=== PATIENT | female | born 1990 | race Caucasian/White ===

== ENCOUNTER 2017-06-20 03:30 | Inpatient (IN) | payer OTHER ==
[~2017-06-20] VITALS: Ht 160 cm; Wt 72.2 kg
[~2017-06-20 03:30] MED LIST: CALCIUM; PREN1TAB13 PO
[2017-06-20 03:34] VITALS: Ht 160 cm; Wt 72.2 kg
[2017-06-20] MEDS ORDERED: FERR134T PO (03:37)
[2017-06-20 05:41] LABS: URINE BLOOD (Dip) POC Negative (NEGATIVE)
[2017-06-20 05:42] VITALS: BP 101/57; PULSE 61; RESP 18
--- NOTE | 2017-06-20 06:32 | PN ---
Triage Information Date/Time Reason for visit: Uterine contractions Weeks of Gestation 34 weeks and 4 days of gestation /Para 3 para 2 Diabetes: none Hypertention: none Objective Vital Signs Date Time Temp Pulse Resp B/P Pulse Ox O2 Delivery O2 Flow Rate FiO2 06/20/17 05:42 97.6 61 18 101/57 Room Air Heart Rate: 140's Heart Rate Comments Reactive Contractions: None Results/Medications Results 24 hrs Laboratory Tests Test 06/20/17 05:51 Bedside Urine pH (LAB) 7.0 Bedside Urine Protein (LAB) Negative Bedside Urine Glucose (UA) Negative Bedside Urine Ketones (LAB) Negative Bedside Urine Blood Negative Bedside Urine Nitrite (LAB) Negative Bedside Urine Leukocyte Esterase (L Negative Disposition: Admit Assessment/Plan Biophysical profile of 6 out of 8 with low HUNTER 4.2 EFW and Gestation age ultrasound to be done We will admit patient to antepartum IV fluids and labs Repeat BPP in 24 hours Perinatology consult JULIAN ROBBINS MD Jun 20, 2017 06:32
--- NOTE | 2017-06-20 07:00 | HP ---
Date/Time of Note Date/Time of Note DATE: 06/20/17 TIME: 06:57 OB - History Hx of Present Free Text/Dictation 3 para 2 at 34 weeks and 4 days of gestation with oligohydramnios Chief Complaint: Contractions : 3 Para: 2 Care: Good Care Abnormal Ultrasound Findings: PROCEDURE: ULTRASOUND OBSTETRICAL CLINICAL INDICATION: 26-year-old female in labor for size and date determination. TECHNIQUE: Multiple sonographic images of the pelvis were obtained. The images were reviewed on a PACS workstation. COMPARISON: Ultrasound biophysical profile obtained concurrently. FINDINGS: There is a single viable intrauterine gestation. Cardiac activity is present with 146 beats per minute. There is a vertex presentation. Measurements were made in order to determine age. The results are as follows: BPD = 8.58 cm, HC = 31.00 cm, AC = 30.68 cm, FL = 6.69 cm. This yields and estimated gestational age of approximately 34 weeks 4 days. The estimated date of delivery is July 28, 2017. The EFW = 2461 +/- 369 g (5 lb 7 oz). The GP is 45%. The placenta is posterior. There is no evidence for an abruption or placenta previa. The amniotic fluid index equals 4.4 cm. IMPRESSION: 1. Single viable intrauterine gestation of approximately 34 weeks 4 days with vertex presentation. The estimated date of delivery is July 28, 2017. 2. The estimated weight is 2461 +/- 369 g (5 lb 7 oz). The GP is 45%. 3. The amniotic fluid index equals 4.4 cm. .Harry Buck MD, MD Date Time Electronically viewed and signed by .Harry Buck MD, MD on 06/20/2017 07:23 .M/ CC: JULIAN ROBBINS MD PROCEDURE: ULTRASOUND BIOPHYSICAL PROFILE CLINICAL INDICATION: 26-year-old female in labor for viability. TECHNIQUE: Multiple sonographic images were obtained in order to perform a biophysical profile The images were reviewed on a PACS workstation. COMPARISON: None. FINDINGS: The cervix appears closed with a length of 3.1 cm measured transvaginally. There is a single viable intrauterine gestation. There is a vertex presentation. Cardiac activity is present at 142 beats per minute. The placenta is posterior. The results of the biophysical profile are as follows: breathing movement = 2/2 Gross body movement = 2/2 tone = 2/2 Qualitative amniotic fluid volume = 0/2 Amniotic fluid index equals 4.4 cm. This yields a biophysical profile score of 6/8. IMPRESSION: Biophysical profile score is 6/8. .Harry Buck MD, MD Date Time Electronically viewed and signed by .Harry Buck MD, MD on 06/20/2017 07:21 .M/ CC: JULIAN ROBBINS MD Past Family/Social History * Past Medical, Surgical, Family and Obstetric Histories reviewed from chart. OB Admission Exam Vital Signs Vital Signs Vital Signs Date Time Temp Pulse Resp B/P Pulse Ox O2 Delivery O2 Flow Rate FiO2 06/20/17 05:42 97.6 61 18 101/57 Room Air Physical Exam HEENT: WNL Heart: Rhythm Normal Lungs: Clear, Equal Abdomen: WNL Extremities: Normal Reflexes: Normal Membranes: Intact Heart Rate: 140's Accelerations: Accelerations Present Decelerations: No Decelerations OB Assessment/Plan Reason for admission: other (Oligohydramnios) Plan: Other Other plan: Admit to antepartum IV fluids and labs Betamethasone for lung maturity We will obtain perinatology consult JULIAN ROBBINS MD Jun 20, 2017 07:00
--- NOTE | 2017-06-20 07:21 | RADRPT ---
PROCEDURE: ULTRASOUND BIOPHYSICAL PROFILE CLINICAL INDICATION: 26-year-old female in labor for viability. TECHNIQUE: Multiple sonographic images were obtained in order to perform a biophysical profile The images were reviewed on a PACS workstation. COMPARISON: None. FINDINGS: The cervix appears closed with a length of 3.1 cm measured transvaginally. There is a single viable intrauterine gestation. There is a vertex presentation. Cardiac activity is present at 142 beats pe r minute. The placenta is posterior. The results of the biophysical profile are as follows: breathing movement = 2/2 Gross body movement = 2/2 tone = 2/2 Qualitative amniotic fluid volume = 0/2 Amniotic fluid index equals 4.4 cm. This yields a biophysical profile score of 6/8. IMPRESSION: Biophysical profile score is 6/8. .Harry Buck MD, Date Time Electronically viewed and signed by .Harry Buck MD, MD on 06/20/2017 07:21 .M/
--- NOTE | 2017-06-20 07:23 | RADRPT ---
PROCEDURE: ULTRASOUND OBSTETRICAL CLINICAL INDICATION: 26-year-old female in labor for size and date determination. TECHNIQUE: Multiple sonographic images of the pelvis were obtained. The images were reviewed on a PACS workstation. COMPARISON: Ultrasound biophysical profile obtained concurrently. FINDINGS: There is a single viable intrauterine gestation. Cardiac activity is present with 146 beats per mi nute. There is a vertex presentation. Measurements were made in order to determine age. The re sults are as follows: BPD = 8.58 cm, HC = 31.00 cm, AC = 30.68 cm, FL = 6.69 cm. This yields and estimated gestational ag e of approximately 34 weeks 4 days. The estimated date of delivery is July 28, 2017. The EFW = 2461 +/- 369 g (5 lb 7 oz). The GP is 45%. The placenta is posterior. There is no evidence for an abruption or placenta previa. The amniotic fluid index equals 4.4 cm. IMPRESSION: 1. Single viable intrauterine gestation of approximately 34 weeks 4 days with vertex presentation. The estimated date of delivery is July 28, 2017. 2. The estimated weight is 2461 +/- 369 g (5 lb 7 oz). The GP is 45%. 3. The amniotic fluid index equals 4.4 cm. .Harry Buck MD, Date Time Electronically viewed and signed by .Harry Buck MD, MD on 06/20/2017 07:23 .M/
--- NOTE | 2017-06-20 07:59 | TRIAGE ---
OB Triage Datetime Report Generated by CPN: 06/20/2017 07:58 Datetime: 06/20/2017 07:00 Labor Evaluation Frequency: X2 Monitor Mode: External Duration (sec)2399: 50-80 Quality: Mild Pattern: Normal: <= 5 Contractions in 10 Minutes Resting Tone [place]: Relaxed Heart Rate FHR Baseline Rate: 125 Monitor Mode: External US FHR Baseline Changes: No Baseline Change Variability: Moderate 6-25 bpm Accelerations: 15X15 Decelerations: None Category: Category I Datetime: 06/20/2017 06:00 Labor Evaluation Frequency: X2 Monitor Mode: External Duration (sec)2399: 80-90 Quality: Mild Pattern: Normal: <= 5 Contractions in 10 Minutes Resting Tone [place]: Relaxed Heart Rate FHR Baseline Rate: 135 Monitor Mode: External US FHR Baseline Changes: No Baseline Change Variability: Moderate 6-25 bpm Accelerations: 15X15 Decelerations: None Category: Category I Datetime: 06/20/2017 05:00 Labor Evaluation Frequency: X7 Monitor Mode: External Duration (sec)2399: 50-70 Quality: Mild Pattern: Normal: <= 5 Contractions in 10 Minutes Resting Tone [place]: Relaxed Heart Rate FHR Baseline Rate: 135 Monitor Mode: External US FHR Baseline Changes: No Baseline Change Variability: Moderate 6-25 bpm Accelerations: 15X15 Decelerations: None Category: Category I Datetime: 06/20/2017 04:11 Assessment Type: Triage Maternal Assessment Level of Consciousness: Fully Conscious DTR's/Clonus: DTRs 2+; No Clonus Headache: Denies Blurred Vision: No Respiratory Effort: Unlabored; Regular Rhythm; Equal Expansion Breath Sounds, Left: Clear and Equal Breath Sounds, Right: Clear and Equal Nausea/Vomiting: Denies RUQ Epigastric Pain: Denies Lower Extremities Edema: None Degree: None Upper Extremities Edema: None Degree: None Facial Edema: None Fall Risk Assessment History of Falling: (0) No Secondary Diagnosis: (0) No Ambulatory Aid: (0) Bedrest/Nurse Assist IV Therapy: (0) No Gait: (0) Normal/Bedrest/Immobile Mental Status: (0) Oriented to Own Ability Fall Score: 0 Fall Risk Score Definition: No Risk: No action required Datetime: 06/20/2017 03:39 Time of Arrival: 06/20/2017 03:24 EGA: 34.4 Arrived By: Wheelchair Arrived From: Home (Annotations: Data stored by CPN on behalf of user) Chief Complaint: Constant low abdominal Movement: Present Contractions: Denies/Absent Rupture of Membranes: Denies Vaginal Discharge: Denies Recent Sexual Intercouse: Denies Abdominal Trauma: Not Applicable Patient Complaints: Other Time Provider Notified: 06/20/2017 05:00 Provider Notified: Dr Francisco Initial Plan: EFM X2, BPP, CL
[2017-06-20] MEDS: BETAMET NA PHOS/AC(6 MG/ML) 5ML INJ IM SCH (08:12)
[2017-06-20] MEDS: LACTATED RINGER'S 1,000 ML IV SCH ×4 (08:14→20:41)
[2017-06-20 09:16] LABS: BASOPHILS % 0.4 % (0.0-2.0); EOSINOPHILS # 0.1 10^3/ul (0.0-0.5); EOSINOPHILS % 1.1 % (0.0-7.0); HEMATOCRIT 35.1 % (37.0-47.0); HEMOGLOBIN 12.1 g/dl (12.0-16.0); LYMPHOCYTES # 1.2 10^3/ul (0.8-2.9); LYMPHOCYTES % 21.8 % (15.0-51.0); MEAN CORPUSCULAR HEMOGLOBIN 30.2 pg (29.0-33.0); MEAN CORPUSCULAR HGB CONC 34.5 g/dl (32.0-37.0); MEAN CORPUSCULAR VOLUME 87.5 fl (82.0-101.0); MEAN PLATELET VOLUME 10.4 fl (7.4-10.4); MONOCYTE # 0.4 10^3/ul (0.3-0.9); MONOCYTES % 7.2 % (0.0-11.0); NEUTROPHIL # 3.9 10^3/ul (1.6-7.5); NEUTROPHILS % 68.8 % (39.0-77.0); PLATELET COUNT 185 10^3/UL (140-415); RED BLOOD COUNT 4.01 10^6/ul (4.20-5.40); WHITE BLOOD COUNT 5.7 10^3/ul (4.8-10.8)
[2017-06-20 09:43] LABS: INR 0.95; PROTIME 12.7 Sec (12.2-14.2)
[2017-06-20 09:44] LABS: PARTIAL THROMBOPLASTIN TIME 30.3 Sec (25.0-35.0)
[2017-06-20] MEDS: PRENATAL VITAMIN PO SCH (11:12)
[2017-06-20 12:16] LABS: BARBITURATES Negative (NEGATIVE); BENZODIAZEPINES Negative (NEGATIVE); CANNABINOIDS Negative (NEGATIVE); COCAINE Negative (NEGATIVE); OPIATES Negative (NEGATIVE)
[2017-06-21] MEDS: LACTATED RINGER'S 1,000 ML IV SCH ×5 (04:28→19:23)
--- NOTE | 2017-06-21 07:34 | RADRPT ---
PROCEDURE: OB ultrasound for biophysical profile CLINICAL INDICATION: Low HUNTER. Biophysical profile. . TECHNIQUE: Multiple sonographic images of the pelvis were obtained. Transabdominal view of the gr avid uterus are available for review. The images were reviewed on a PACS workstation. COMPARISON: Ultrasound, 06/20/2017 FINDINGS: breathing movement = 2/2 tone = 2/2 motion = 2/2 HUNTER = 2/2 Single intrauterine gestation is identified in cephalic position. heart rate is 139 bpm. Plac enta is posterior fundal without evidence for abruption or previa. HUNTER measures 3.9 cm, below rubia l limits. Maximum vertical pocket of fluid measures 1.7 cm. IMPRESSION: 1. Single live intrauterine gestation. 2. Biophysical profile = 8 3. Oligohydramnios is noted - HUNTER measures 3.9 cm. On the previous ultrasound, HUNTER measured 4.4 cm. .John Larose MD, MD Date Time Electronically viewed and signed by .John Larose MD, on 06/21/2017 07:34 .R/
[2017-06-21] MEDS: BETAMET NA PHOS/AC(6 MG/ML) 5ML INJ IM SCH (07:37)
[2017-06-21] MEDS: PRENATAL VITAMIN PO SCH (09:17)
--- NOTE | 2017-06-21 16:44 | QN ---
Documentation Comment iup 34 weeks oligo s/p bms course NSt reactive a/p iup 34.5 oligo- ivf mfm consult ALBERT MALIK MD Jun 21, 2017 16:44
[2017-06-22] MEDS: LACTATED RINGER'S 1,000 ML IV SCH ×3 (03:15→20:00)
[2017-06-22] MEDS: PRENATAL VITAMIN PO SCH (10:07)
--- NOTE | 2017-06-22 12:37 | QN ---
Documentation Comment 34+wks With OligoHydramnious No complaints NSt reassrring Thoreau No CTXs Last HUNTER<4 --->Repeat HUNTER today --->Discussed with ,Perinatalogist,the patient will stay under Observation and No Delivery plan at this time --->Venlamin boots while she is in bed KRYSTAL ORLANDO M.D. Jun 22, 2017 12:37
--- NOTE | 2017-06-22 12:43 | RADRPT ---
PROCEDURE: US OB. CLINICAL INDICATION: Low HUNTER , pain TECHNIQUE: Transabdominal views of the pelvis are available for review. COMPARISON: 06/21/2017 FINDINGS: There is a single intrauterine gestation in a vertex position. The heart rate is noted at 156 bpm. The placenta is posterior. The HUNTER measures 6.0 cm. RPTAT: AA IMPRESSION: Oligohydramnios, slightly improved. .Thang Walker MD, MD Date Time Electronically viewed and signed by .Thang Walker MD, MD on 06/22/2017 12:43 .S/
--- NOTE | 2017-06-22 21:48 | NEURPT ---
DATE: 06/21/2017 HISTORY: The patient is a 26-year-old at 34 weeks and 5 days who presented to be complaining of contractions. However, after ultrasound was done, she was found to have oligohydramnios at 4.2 cm. HUNTER was repeated yesterday. Her HUNTER was 3.9 cm; however, heart tone is very reassuring. OB history is significant of 1 intrauterine demise around 28 weeks per patient, secondary to what sounds to be growth restriction. Her other pregnancies have been uncomplicated and she has had 1 normal baby at normal time after the demise. Otherwise, her history is not significant. Vital signs stable. Physical exam deferred. heart tones reassuring. Contractions very infrequently. IMPRESSION: Intrauterine at 34 weeks and 5 days with oligohydramnios, history of secondary to intrauterine growth restriction. RECOMMENDATIONS: 250 mL for 4 hours and then continue with 125 mL an hour. Repeat HUNTER on June 22. As long as the HUNTER is not less than 3 cm and heart tone is reassuring. We will continue with heart tone monitoring continuously in house. Please obtain records and please obtain estimated weight. Assess growth. If the baby is IUGR umbilical artery Doppler is necessary. Dictated By: Isa Santiago MD /chadwick/norberto /Document#: [id number]
[2017-06-23] MEDS: LACTATED RINGER'S 1,000 ML IV SCH ×3 (03:40→19:36)
[2017-06-23] MEDS: PRENATAL VITAMIN PO SCH (08:46)
--- NOTE | 2017-06-23 08:57 | RADRPT ---
PROCEDURE: Limited OB ultrasound CLINICAL INDICATION: Low HUNTER TECHNIQUE: Sonographic evaluation to assess the HUNTER was performed. Transabdominal imaging of the gravid uterus was performed. COMPARISON: OB ultrasound dated 06/22/2017 FINDINGS: There is a single live intrauterine with a heart rate of 141 bpm. position is cephalic. The placenta is posterior. The HUNTER measures 6.9 cm. IMPRESSION: The HUNTER measures 6.9 cm. RPTAT: HH .Zuleyka White MD, MD Date Time Electronically viewed and signed by .Zuleyka White MD, on 06/23/2017 08:57 .G/
--- NOTE | 2017-06-23 16:31 | PN ---
Date/Time of Note Date/Time of Note DATE: 06/23/17 TIME: 16:27 OB Subjective Subjective Subjective Denies any complaint. Denies any uteine contractions, LOF or vaginal bleeding or decreased movement OB Objective Objective Objective G:A A&O, NAD Comfortable in bed Abdomen: soft, non tender, no rebound tenderness, gravid fundal Height consistent with GA NST : Cat 1 BPP: 05/11 HUNTER: today 6.9 PROCEDURE: Limited OB ultrasound CLINICAL INDICATION: Low HUNTER TECHNIQUE: Sonographic evaluation to assess the HUNTER was performed. Transabdominal imaging of the gravid uterus was performed. COMPARISON: OB ultrasound dated 06/22/2017 FINDINGS: There is a single live intrauterine with a heart rate of 141 bpm. position is cephalic. The placenta is posterior. The HUNTER measures 6.9 cm. IMPRESSION: The HUNTER measures 6.9 cm. RPTAT: OB Assessment/Plan Other Assessment: IUP at 35 weeks History of still History of oligohydraminos in current . Improved s/p 2 dose of steriods s/p perinatology consultation Doing well ANT reassuring HUNTER is borderline Continue expectant managment in house Continue Hydration Repeat HUNTER tomorrow Possible DC home if HUNTER 8 or more MARY BYRNE MD Jun 23, 2017 16:31
[2017-06-24] MEDS: LACTATED RINGER'S 1,000 ML IV SCH ×4 (03:40→20:40)
[2017-06-24] MEDS: PRENATAL VITAMIN PO SCH (09:05)
--- NOTE | 2017-06-24 17:00 | QN ---
Documentation Comment iup 35 weeks Oligo stable good FM vss cat I tracing a/p iup 35 weeks oligo jose 6.7 continue care in house rpt in am ALBERT George MD Jun 24, 2017 17:00
[2017-06-25] MEDS: LACTATED RINGER'S 1,000 ML IV SCH (05:57)
--- NOTE | 2017-06-25 08:30 | RADRPT ---
PROCEDURE: US OB. CLINICAL INDICATION: Low HUNTER , pain TECHNIQUE: Transabdominal views of the pelvis are available for review. COMPARISON: 06/23/2017 FINDINGS: There is a single intrauterine gestation in a vertex position. The heart rate is noted at 144 bpm. The placenta is posterior. The HUNTER measures 7.5 cm. RPTAT: AA IMPRESSION: Mild oligohydramnios. .Thang Walker MD, MD Date Time Electronically viewed and signed by .Thang Walker MD, on 06/25/2017 08:30 .S/
[2017-06-25] MEDS: PRENATAL VITAMIN PO SCH (08:50)
--- NOTE | 2017-06-25 13:10 | PERINOTE ---
Date/Time of Note Date/Time of Note DATE: 06/25/17 TIME: 13:06 Assessment/Recommendations Other Assessments Patient with oligohydramnios, without evidence of rupture of the membranes. Oligohydramnios has resolved with bedrest and hydration. Patient now feels well. Recommendations: Would consider discharging this patient home with follow up once weekly NST and HUNTER until delivery OB Subjective Free Text/Dictaton Patient admitted with pain, now resolved, found to have low HUNTER HD# 6 IUP @ 35W2D Complaints/Overnight events None. Denies contractions, fluid leakage or vaginal bleeding Current Medications Current Medications Prenat Multivit/ Regulatory Compliance Director/Iron/Folic Ac 1 tab 1 tab DAILY PO Last administered on 06/25/17 08:50; Admin Dose 1 TAB; Start 06/20/17 at 09:00 Lactated Ringer's (Lr) 1,000 ml @ 125 mls/hr Q8H IV Last administered on 05:57; Admin Dose 125 MLS/HR; Start 06/21/17 at 19:00 OB Admission Exam Physical Exam Abdomen: WNL RICCO ENGLISH MD Jun 25, 2017 13:10
--- NOTE | 2017-06-25 13:56 | DS ---
Date/Time of Note Date/Time of Note DATE: 06/25/17 TIME: 13:56 Obstetrical Discharge Record Final Diagnosis Final Diagnosis: not delivered Complications Other Condition on Discharge Physical Assessment Last Vitals: See PN Patient Condition: Good JILLIAN SOTO Jun 25, 2017 13:56
--- NOTE | 2017-06-25 13:56 | PN ---
Date/Time of Note Date/Time of Note DATE: 06/25/17 TIME: 13:54 OB Subjective Subjective Subjective No complaints. OB Objective Objective Objective Gen: NAD Abd: FF OB Assessment/Plan Other Assessment: 26 y/o at 35w 2d with oligohydramnios Other plan: -HUNTER 7.5cm -discharge home per perinatology -biweekly NST/HUNTER -establish care with OB provider JILLIAN SOTO Jun 25, 2017 13:56
== END 2017-06-25 15:38 | disposition home or self-care (01) | DRG 780 ==
LOC: OBT 03:30 → L-D 03:31 → OBT 07:00 → L-D 07:00 → OBG 18:49
PROVIDERS: ADMIT Obstetrics & Gynecology Gynecology; ATTEND Obstetrics & Gynecology Gynecology
DX: O47.03 False labor before 37 completed weeks of gestation, third trimester (principal); Z3A.34 34 weeks gestation of pregnancy
CPT/HCPCS: 76815; 76816; 76817; 76818; 80307; 81003; 84112; 85025; 85610; 85730; 86592; 86900; 86901; 87340; G0463; J0702; J7120

== ENCOUNTER 2017-07-01 13:46 | Outpatient (CLI) | payer OTHER ==
[~2017-07-01] VITALS: Ht 160 cm; Wt 72.1 kg
[~2017-07-01 13:46] MED LIST changes: +FERR134T PO
[2017-07-01 13:54] VITALS: BP 107/51; PULSE 83; RESP 18
[2017-07-01 13:55] VITALS: Ht 160 cm; Wt 72.1 kg
--- NOTE | 2017-07-01 14:19 | RADRPT ---
PROCEDURE: US OB biophysical profile. CLINICAL INDICATION: evaluation TECHNIQUE: Multiple sonographic images of the pelvis were obtained. The images were reviewed on a PACS workstation. COMPARISON: No prior studies are available for comparison. FINDINGS: There is a single viable intrauterine gestation. Cardiac activity is present with 129 beats per min rabia. There is a vertex presentation. The placenta is posterior and fundal. There is no evidence of placental abruption. There is a normal amount of amniotic fluid with an HUNTER = 9.2 cm. Biophysical profile: movement 2/2 tone 2/2. breathing 2/2 HUNTER 2/2 Total 05/11 RPTAT: AA . IMPRESSION: Normal biophysical profile. Physician Eliza Date Time Electronically viewed and signed by Physician Eliza on 07/01/2017 14:19 /
--- NOTE | 2017-07-01 14:22 | RADRPT ---
PROCEDURE: Obstetrical ultrasound CLINICAL INDICATION: Intrauterine growth retardation TECHNIQUE: Multiple sonographic images of the pelvis were obtained. The images were reviewed on a PACS workstation. COMPARISON: Obstetrical ultrasound from 06/25/2017 FINDINGS: The cervix is not well visualized. There is a single viable intrauterine gestation. Cardiac activity is present with 128 beats per minute. There is a vertex presentation. The placenta is posterior and fundal in location. There is no evidence for an abruption or placenta previa. There is a normal amount of amniotic fluid with an HUNTER = 9.2 cm. Measurements were made in order to determine age. The results are as follows (cm): BPD =8.96 HC =32.54 AC =33.98 FL =6.97 Estimated gestational age by ultrasound of approximately 36 weeks, 5 days. The estimated date of delivery by ultrasound is 07/24/2017. Estimated gestational age by LMP of approximately 36 weeks, 1 day. The estimated date of delivery by LMP is 07/28/2017. EFW = 3112 grams (77th percentile) IMPRESSION: Single viable intrauterine gestation of approximately 36 weeks, 5 days . The estimated date of delivery is 07/24/2017 . Dating by ultrasound is within 4 days of dating by LMP. Cephalic presentation. Normal HUNTER. Estimated weight is 3112 g which is in the 77th percentile. RPTAT: EE Physician Eliza Date Time Electronically viewed and signed by Physician Eliza on 07/01/2017 14:21 /
--- NOTE | 2017-07-01 17:35 | PN ---
Triage Information Date/Time 07/01/2017 Reason for visit: IUGR (Sent in from clinic to rule out intrauterine growth retardation and positive antibody screen which was not identified) Weeks of Gestation 35/36 weeks /Para 5 Para 2 Diabetes: none Hypertention: none Additional information Patient at 3635 weeks gestation sent in from clinic with unidentified positive antibody screen and possible intrauterine growth retardation Objective Vital Signs Date Time Temp Pulse Resp B/P Pulse Ox O2 Delivery O2 Flow Rate FiO2 07/01/17 13:54 97.4 83 18 107/51 98 Room Air Heart Rate: 120's Heart Rate Comments Reactive Contractions: None Results/Medications Medications Current Medications Influenza Virus Vaccine (Fluzone) 0.5 ml ONCE ONCE IM* ; Start 07/03/17 at 09:00 ; Stop 07/03/17 at 09:01 Imaging Results BPD = 8.96 HC = 32.54 AC = 33.98 FL = 6.97 Estimated gestational age by ultrasound of approximately 36 weeks, 5 days. The estimated date of delivery by ultrasound is 07/24/2017. Estimated gestational age by LMP of approximately 36 weeks, 1 day. The estimated date of delivery by LMP is 07/28/2017. EFW = 3112 grams (77th percentile) Biophysical profile: movement 2/2 tone 2/2. breathing 2/2 HUNTER 2/2 Total 05/11 Disposition: Discharge Assessment/Plan Antibody screen at this point is pending and also identification is pending However because of normal biophysical profile and estimation of weight patient was discharged home We will follow as outpatient KIM WELLS MD Jul 01, 2017 17:35
[2017-07-03] MEDS ORDERED: INFLUENZA VIRUS VACCINE 0.5 ML (DISPENSING) IM* ONE (09:00)
== END 2017-07-01 17:30 | disposition home or self-care (01) ==
LOC: L-D 13:46 → OBT 13:46
PROVIDERS: ATTEND Obstetrics & Gynecology
DX: O36.5930 Maternal care for other known or suspected poor fetal growth, third trimester, not applicable or unspecified (principal); Z3A.36 36 weeks gestation of pregnancy
CPT/HCPCS: 76815; 76818; 86870; 86885; 86900; 86901; 86902

== ENCOUNTER 2017-07-07 13:53 | Inpatient (IN) | END 2017-07-09 16:43 | disposition home or self-care (01) | DRG 775 | DX: O70.0 First degree perineal laceration during delivery (principal); Z37.0 Single live birth; Z3A.37 37 weeks gestation of pregnancy ==

== ENCOUNTER 2018-08-03 11:41 | Emergency (ER) | END 2018-08-03 13:47 | disposition home or self-care (01) ==